=== PATIENT | male | born 1955 | race Caucasian/White ===

== ENCOUNTER → 2018-10-09 12:59 | Outpatient (CLI) | payer OTHER, SELFPAY ==
[2018-10-09 14:09] LABS: Alanine Aminotransferase 43 IU/L (21-72); Albumin 4.3 g/dL (3.5-5.0); Albumin Globulin Ratio 1.6 (1.0-2.8); Alkaline Phosphatase 44 U/L (38-126); Aspartate Aminotransferase 33 IU/L (17-59); BUN Creatinine Ratio 16.7 (6-22); Blood Urea Nitrogen 20 mg/dL (9-20); Calcium 9.2 mg/dL (8.4-10.2); Carbon Dioxide 29 mmol/L (22-32); Chloride 104 mmol/L (98-107); Cholesterol 153 mg/dL (140-199); Estimated Glomerular Filt Rate > 60.0 mL/min (>60); Globulin 2.7 g/dL (1.7-4.1); Glucose 71 mg/dL (80-110); HDL Cholesterol 39 mg/dL (40-60); HEMOLYSIS < 15 (0-50); LDL Cholesterol Calculated 83 mg/dL (<100); Sodium 139 mmol/L (137-145); Triglycerides 156 mg/dL (35-150)
[2018-10-09 14:16] LABS: Add Manual Diff / Slide Review NO; Basophils Absolute Auto 100 /uL (0-100); Basophils Percent Auto 1.3 % (0-2); Eosinophils Absolute Auto 300 /uL (0-450); Hematocrit 50.7 % (41-53); Hemoglobin 17.3 g/dL (13.5-17.5); Lymphocytes Absolute Auto 1800 /uL (1100-4500); Lymphocytes Percent Auto 30.8 % (25-40); Mean Corpuscular HGB Conc 34.2 % (30-36); Mean Corpuscular Hemoglobin 31.8 PG (26-34); Mean Corpuscular Volume 93.1 fL (80-100); Monocytes Absolute Auto 500 /uL (0-900); Monocytes Percent Auto 8.3 % (3-14); Neutrophils Absolute Auto 3300 /uL (1500-7000); Neutrophils Percent Auto 54.6 % (50-75); Platelet Count 188 X10^3/uL (150-400); Red Blood Cell Count 5.45 X10^6/uL (4.5-5.9)
== END ==
PROVIDERS: Visit Provider Hospitalist
DX: I42.9 Cardiomyopathy, unspecified (principal)
CPT/HCPCS: 36415; 80053; 80061; 85025

== ENCOUNTER → 2019-01-13 09:31 | Outpatient (CLI) | payer OTHER, SELFPAY ==
[2019-01-13 10:31] LABS: Add Manual Diff / Slide Review NO; Basophils Absolute Auto 0 /uL (0-100); Basophils Percent Auto 1.1 % (0-2); Eosinophils Absolute Auto 200 /uL (0-450); Hematocrit 44.6 % (41-53); Hemoglobin 15.4 g/dL (13.5-17.5); Lymphocytes Absolute Auto 1500 /uL (1100-4500); Lymphocytes Percent Auto 32.1 % (25-40); Mean Corpuscular HGB Conc 34.6 % (30-36); Mean Corpuscular Volume 92.6 fL (80-100); Monocytes Absolute Auto 400 /uL (0-900); Monocytes Percent Auto 8.8 % (3-14); Neutrophils Absolute Auto 2400 /uL (1500-7000); Platelet Count 162 X10^3/uL (150-400); Red Blood Cell Count 4.82 X10^6/uL (4.5-5.9); Red Cell Distribution Width 14.8 % (11.6-14.8); White Blood Cell Count 4.5 X10^3/uL (4.5-11.0)
[2019-01-13 10:54] LABS: Alanine Aminotransferase 44 IU/L (21-72); Albumin 3.9 g/dL (3.5-5.0); Albumin Globulin Ratio 1.4 (1.0-2.8); Alkaline Phosphatase 43 U/L (38-126); Aspartate Aminotransferase 31 IU/L (17-59); Bilirubin Total 0.6 mg/dL (0.2-1.3); Blood Urea Nitrogen 21 mg/dL (9-20); Calcium 9.4 mg/dL (8.4-10.2); Carbon Dioxide 29 mmol/L (22-32); Chloride 104 mmol/L (98-107); Cholesterol 233 mg/dL (140-199); Estimated Glomerular Filt Rate > 60.0 mL/min (>60); Globulin 2.7 g/dL (1.7-4.1); Glucose 106 mg/dL (80-110); HDL Cholesterol 47 mg/dL (40-60); HEMOLYSIS < 15 (0-50); LDL Cholesterol Calculated 154 mg/dL (<100); Magnesium 1.7 mg/dL (1.6-2.3); Potassium 4.6 mmol/L (3.4-5.1); Sodium 140 mmol/L (137-145); Total Protein 6.6 g/dL (6.3-8.2); Triglycerides 158 mg/dL (35-150)
[2019-01-13 11:23] LABS: Thyroid Stimulating Hormone 1.62 uIU/mL (0.47-4.68)
== END ==
PROVIDERS: PCP Hospitalist; Visit Provider Internal Medicine Cardiovascular Disease
DX: I48.3 Typical atrial flutter (principal); E78.5 Hyperlipidemia, unspecified
CPT/HCPCS: 36415; 80053; 80061; 83735; 84443; 85025

== ENCOUNTER → 2019-01-14 13:31 | Outpatient (CLI) | payer OTHER, SELFPAY ==
--- NOTE | 2019-01-14 | DI.ECHO.S_ITS ---
[facility]---------+ [facility] +---------+ : : [address] : : : : [id number] : : : : Phone: [phone]+ Echocardiogram Report + + :Name: CHANO STRANGE Study Date: 01/14/2019 Height: 68 in : :[facility] Exam Location: [facility] Weight: 196 lb : : Gender: Male BSA: 2.0 m2 : :: 1955 Age: 63 yrs BP: 120/78 mmHg: :Reason For Study: AFLUTTER : : Performed By: Cisco Yu : :Referring: BETTY ZHOU : + + Interpretation Summary The left ventricle is normal in size. The ejection fraction is estimated to be 55-60%. The right ventricle is normal in size and function. No significant valvular pathology seen. The ascending aorta is mildly enlarged. The IVC is of normal diameter and collapses greater than 50% with a sniff. This suggests a low right atrial pressure of 3 mm Hg. Procedure: A two-dimensional transthoracic echocardiogram with color flow and Doppler was performed. The study quality was technically good. There is no prior echocardiogram noted for this patient. Rhythm appears to be atrial flutter with controlled ventricular rate. Left Ventricle: The left ventricle is normal in size. There is normal left ventricular wall thickness. There is no thrombus. The ejection fraction is estimated to be 55-60%. Septal motion is consistent with conduction abnormality. E/E' med: 7.5. Right Ventricle: The right ventricle is normal in size and function. Atria: Both atria are normal in size. The interatrial septum is intact with no evidence for an atrial septal defect. Mitral Valve: The mitral valve is normal. There is systolic anterior motion of the chordal apparatus. Redundant elongated chordae are noted. There is trace mitral regurgitation. Aortic Valve: The aortic valve is trileaflet. The aortic valve opens well. There is no aortic valve stenosis. No aortic regurgitation is present. Tricuspid Valve: The tricuspid valve is normal in structure and function. There is trace tricuspid regurgitation. The right ventricular systolic pressure is estimated to be at least 18 mmHg based on an estimated right atrial pressure of 3 mm Hg. Pulmonic Valve: The pulmonic valve is normal in structure and function. There is trace pulmonic regurgitation. Great Vessels: The aortic root is normal size. The ascending aorta is mildly enlarged. The pulmonary artery is normal size. The IVC is of normal diameter and collapses greater than 50% with a sniff. This suggests a low right atrial pressure of 3 mm Hg. Pericardium/ Pleura There is no pericardial effusion. There is no pleural effusion. MMode/2D Measurements & Calculations LVIDd: 4.3 cm LVOT diam: 2.2 cm LVIDs: 2.9 cm Ao root diam: 3.6 cm FS: 32.1 % Aortic Jxn: 2.9 cm EPSS: 0.45 cm asc Aorta Diam: 3.7 cm IVSd: 0.86 cm Ao Arch Diam (Prox Trans): 3.2 cm LVPWd: 0.89 cm LV neville. diameter/BSA (cm/m^2): 2.1 LV sys. diameter/BSA (cm/m^2): 1.4 LA dimension: 4.2 cm IVC diam: 1.7 cm LA A2 area: 23.7 cm2 Doppler Measurements & Calculations Ao V2 max: 128.7 cm/sec LVOT Max Paras: 99.4 cm/sec Ao V2 mean: 89.3 cm/sec LV V1 max P.0 mmHg Ao max P.6 mmHg LV V1 VTI: 21.9 cm Ao mean P.5 mmHg JAYMIE(I,D): 3.4 cm2 Ao V2 VTI: 23.8 cm JAYMIE(V,D): 2.8 cm2 sev ratio: 0.92 JAYMIE indexed to BSA (cm^2/m^2): 1.7 MV E max paras: 78.3 cm/sec TR max paras: 190.7 cm/sec MV A max paras: 48.0 cm/sec TR max P.5 mmHg MV E/A: 1.6 PA V2 max: 66.3 cm/sec Med Peak E' Paras: 10.5 cm/sec PA V2 mean: 45.2 cm/sec E/E' med: 7.5 PA mean P.93 mmHg MV dec time: 0.13 sec PA pr(Accel): 6.6 mmHg PA Accel Time: 0.16 sec SV(LVOT): 79.8 ml Reading Physician:04:46 PM
== END ==
LOC: ECHO 13:32
PROVIDERS: PCP Hospitalist; Visit Provider Internal Medicine Cardiovascular Disease
DX: I48.3 Typical atrial flutter (principal); I77.89 Other specified disorders of arteries and arterioles
CPT/HCPCS: 93306

== ENCOUNTER → 2019-09-01 11:07 | Outpatient (CLI) | payer OTHER, SELFPAY ==
[2019-09-01 11:43] LABS: Add Manual Diff / Slide Review NO; Basophils Absolute Auto 0 /uL (0-100); Basophils Percent Auto 0.8 % (0-2); Eosinophils Absolute Auto 200 /uL (0-450); Eosinophils Percent Auto 3.4 % (2-4); Hematocrit 44.9 % (41-53); Hemoglobin 15.3 g/dL (13.5-17.5); Lymphocytes Absolute Auto 1600 /uL (1100-4500); Lymphocytes Percent Auto 30.8 % (25-40); Mean Corpuscular HGB Conc 34.2 % (30-36); Mean Corpuscular Volume 93.6 fL (80-100); Monocytes Absolute Auto 500 /uL (0-900); Monocytes Percent Auto 9.2 % (3-14); Neutrophils Absolute Auto 2900 /uL (1500-7000); Neutrophils Percent Auto 55.8 % (50-75); Platelet Count 171 X10^3/uL (150-400); Red Blood Cell Count 4.79 X10^6/uL (4.5-5.9); Red Cell Distribution Width 13.4 % (11.6-14.8); White Blood Cell Count 5.2 X10^3/uL (4.5-11.0)
[2019-09-01 12:08] LABS: Alanine Aminotransferase 40 IU/L (<50); Albumin 4.1 g/dL (3.5-5.0); Albumin Globulin Ratio 1.5 (1.0-2.8); Alkaline Phosphatase 45 U/L (38-126); Aspartate Aminotransferase 35 IU/L (17-59); BUN Creatinine Ratio 18.1 (6-22); Bilirubin Total 0.4 mg/dL (0.2-1.3); Blood Urea Nitrogen 17 mg/dL (9-20); Calcium 9.6 mg/dL (8.4-10.2); Carbon Dioxide 28 mmol/L (22-32); Chloride 106 mmol/L (98-107); Cholesterol 136 mg/dL (140-199); Estimated Glomerular Filt Rate > 60.0 mL/min (>60); Globulin 2.7 g/dL (1.7-4.1); Glucose 97 mg/dL (80-110); HDL Cholesterol 40 mg/dL (40-60); HEMOLYSIS 18 (0-50); LDL Cholesterol Calculated 64 mg/dL (<100); Potassium 4.3 mmol/L (3.4-5.1); Sodium 140 mmol/L (137-145); Total Protein 6.8 g/dL (6.3-8.2); Triglycerides 161 mg/dL (35-150)
[2019-09-01 12:38] LABS: Prostate Specific Antigen Scrn 0.813 ng/mL (0.1-4.0)
== END ==
PROVIDERS: PCP Family Medicine; Referring Provider Family Medicine; Visit Provider Family Medicine
DX: I42.9 Cardiomyopathy, unspecified (principal); Z76.89 Persons encountering health services in other specified circumstances
CPT/HCPCS: 36415; 80053; 80061; 83036; 85025; G0103

== ENCOUNTER → 2020-05-01 16:15 | Outpatient (CLI) | payer OTHER, SELFPAY ==
--- NOTE | 2020-05-01 17:05 | DI.RAD.S_ITS ---
PROCEDURE: XR CHEST 2V INDICATIONS: cough TECHNIQUE: 2 views of the chest were acquired. COMPARISON: [facility], CR, XR CHEST 1 VIEW, 04/16/2018, 10:34. FINDINGS: Surgical changes and devices: None. Lungs and pleura: Lungs are clear. No pleural effusions or pneumothorax. Left pericardial fat pad Mediastinum: Mediastinal contours are normal. Heart size is normal. Bones and chest wall: No suspicious bony abnormalities. Soft tissues appear unremarkable. IMPRESSION: No acute disease. Dictated by: Linden Gibson M.D. on 05/02/2020 at 9:51 Approved by: Linden Gibson M.D. on 05/02/2020 at 9:59
[2020-05-01 17:07] LABS: COVID19 -Nasal RAPID Negative (Negative)
== END ==
LOC: LAB 16:16 → RAD 17:05
PROVIDERS: PCP Family Medicine; Referring Provider Family Medicine; Visit Provider Family Medicine
DX: R05 Cough (principal); Z20.828 Contact with and (suspected) exposure to other viral communicable diseases
CPT/HCPCS: 71046; 87502; 87635

== ENCOUNTER → 2020-06-06 08:03 | Outpatient (CLI) | payer OTHER, SELFPAY ==
[2020-06-06 08:32] LABS: Add Manual Diff / Slide Review NO; Basophils Absolute Auto 100 /uL (0-100); Basophils Percent Auto 0.9 % (0-2); Eosinophils Absolute Auto 200 /uL (0-450); Eosinophils Percent Auto 3.1 % (2-4); Hematocrit 45.3 % (41-53); Hemoglobin 14.9 g/dL (13.5-17.5); Lymphocytes Absolute Auto 1500 /uL (1100-4500); Lymphocytes Percent Auto 26.1 % (25-40); Mean Corpuscular HGB Conc 32.9 % (30-36); Mean Corpuscular Hemoglobin 30.5 PG (26-34); Mean Corpuscular Volume 92.7 fL (80-100); Monocytes Absolute Auto 500 /uL (0-900); Monocytes Percent Auto 7.9 % (3-14); Neutrophils Absolute Auto 3700 /uL (1500-7000); Platelet Count 177 X10^3/uL (150-400); Red Blood Cell Count 4.88 X10^6/uL (4.5-5.9); Red Cell Distribution Width 13.3 % (11.6-14.8); White Blood Cell Count 5.9 X10^3/uL (4.5-11.0)
[2020-06-06 08:39] LABS: Alanine Aminotransferase 31 IU/L (<50); Albumin 3.9 g/dL (3.5-5.0); Albumin Globulin Ratio 1.5 (1.0-2.8); Alkaline Phosphatase 46 U/L (38-126); Aspartate Aminotransferase 26 IU/L (17-59); BUN Creatinine Ratio 17.2 (6-22); Bilirubin Total 0.4 mg/dL (0.2-1.3); Blood Urea Nitrogen 17 mg/dL (9-20); Carbon Dioxide 29 mmol/L (22-32); Chloride 109 mmol/L (98-107); Cholesterol 136 mg/dL (140-199); Estimated Glomerular Filt Rate > 60.0 mL/min (>60); Globulin 2.6 g/dL (1.7-4.1); Glucose 111 mg/dL (80-110); HDL Cholesterol 37 mg/dL (40-60); HEMOLYSIS < 15 (0-50); LDL Cholesterol Calculated 83 mg/dL (<100); Potassium 4.4 mmol/L (3.4-5.1); Sodium 138 mmol/L (137-145); Total Protein 6.5 g/dL (6.3-8.2); Triglycerides 80 mg/dL (35-150)
[2020-06-06 08:40] LABS: Hemoglobin A1C% w Est Avg Glu 5.9 % (4.0-6.0)
[2020-06-09 16:18] LABS: Testosterone Total 223.2 ng/dL (264.0-916.0)
== END ==
PROVIDERS: PCP Family Medicine; Referring Provider Family Medicine; Visit Provider Family Medicine
DX: E78.00 Pure hypercholesterolemia, unspecified (principal); I48.91 Unspecified atrial fibrillation; R79.89 Other specified abnormal findings of blood chemistry
CPT/HCPCS: 36415; 80053; 80061; 83036; 84402; 84403; 85025

== ENCOUNTER → 2020-12-23 10:16 | Outpatient (CLI) | payer OTHER, SELFPAY ==
[2020-12-23 11:05] LABS: COVID19 -Nasal RAPID Negative (Negative)
== END ==
PROVIDERS: PCP Family Medicine; Visit Provider Physician Assistant
DX: Z20.822 Contact with and (suspected) exposure to COVID-19 (principal); R05 Cough
CPT/HCPCS: 87635

== ENCOUNTER → 2020-12-26 09:09 | Outpatient (CLI) | payer OTHER, SELFPAY ==
--- NOTE | 2020-12-26 09:15 | DI.RAD.S_ITS ---
PROCEDURE: XR KNEE LT 3V INDICATIONS: Progressive left knee pain TECHNIQUE: 3 views of the knee were acquired. COMPARISON: None. FINDINGS: Bones: No fractures or dislocations. No suspicious bony lesions. There is tricompartmental [id number] degenerative knee joint osteoarthritis most prominent at the lateral compartment seen on the frontal view. Soft tissues: No joint effusion. No suspicious soft tissue calcifications. IMPRESSION: Tricompartmental degenerative osteoarthritis most prominent at the lateral compartment. Dictated by: Isrrael Terrazas M.D. on 12/26/2020 at 9:45 Approved by: Isrrael Terrazas M.D. on 12/26/2020 at 9:46
[2020-12-26 10:00] LABS: Hemoglobin A1C% w Est Avg Glu 5.8 % (4.0-6.0)
[2020-12-26 10:14] LABS: Alanine Aminotransferase 34 IU/L (<50); Albumin 3.9 g/dL (3.5-5.0); Albumin Globulin Ratio 1.4 (1.0-2.8); Alkaline Phosphatase 49 U/L (38-126); Aspartate Aminotransferase 35 IU/L (17-59); BUN Creatinine Ratio 17.8 (6-22); Bilirubin Total 0.5 mg/dL (0.2-1.3); Blood Urea Nitrogen 18 mg/dL (9-20); Calcium 8.8 mg/dL (8.4-10.2); Carbon Dioxide 25 mmol/L (22-32); Chloride 111 mmol/L (98-107); Estimated Glomerular Filt Rate > 60.0 mL/min (>60); Globulin 2.8 g/dL (1.7-4.1); Glucose 108 mg/dL (80-110); HEMOLYSIS < 15 (0-50); Potassium 4.5 mmol/L (3.4-5.1); Sodium 142 mmol/L (137-145); Total Protein 6.7 g/dL (6.3-8.2)
== END ==
PROVIDERS: PCP Family Medicine; Referring Provider Family Medicine; Visit Provider Family Medicine
DX: M17.12 Unilateral primary osteoarthritis, left knee (principal); R73.9 Hyperglycemia, unspecified
CPT/HCPCS: 36415; 73562; 80053; 83036

== ENCOUNTER 2021-01-29 10:13 | Emergency (ER) | payer OTHER, SELFPAY ==
[2021-01-29] VITALS (8 sets, daily range): BP systolic 117–136; BP diastolic 71; PULSE 59–61; RESP 14; TEMP 36.3; O2SAT 95–99; BMI 33.3
--- NOTE | 2021-01-29 10:16 | DI.CT.S_ITS ---
PROCEDURE: CT ABDOMEN PELVIS W CON INDICATIONS: Left-sided abdominal pain TECHNIQUE: After the administration of intravenous contrast, axial sections acquired from the lung bases to the pubic symphysis. Coronal and sagittal reformats were performed. For radiation dose reduction, the following was used: automated exposure control, adjustment of mA and/or kV according to patient size. COMPARISON: None. FINDINGS: Image quality: Excellent. Lung bases: Left basilar scars and atelectasis. Heart: No significant findings. ABDOMEN: Liver: Normal in size. Mild hepatic steatosis. Gallbladder: Unremarkable. Biliary ducts: Unremarkable. Pancreas: Unremarkable. Spleen: Unremarkable. Adrenal Glands: Unremarkable. Kidneys and Ureters: Unremarkable. Stomach and Bowel: Stomach, small bowel loops, and colon are normal in caliber. There is acute diverticulitis of the sigmoid colon. Wall-off perforation is seen with extra luminal gas in the left iliac fossa. There is a small amount of free fluid in the left pericolic gutter. Peritoneum: Small free intraperitoneal fluid in the left pericolic gutter. No free air. Ventral Wall: No hernias. Abdominal Nodes: No retroperitoneal or mesenteric adenopathy by size criteria. Vessels: Aorta and inferior vena cava are normal in size. There is an IVC filter. PELVIS: Pelvic Organs: Unremarkable. Bladder: Unremarkable. Pelvic Nodes: No enlarged lymph nodes. Miscellaneous: No hernias are seen. Bones: Unremarkable. Degenerative changes are present. IMPRESSION: 1. Acute diverticulitis of the sigmoid colon. There is localized walled-off diverticula perforation with extraluminal gas collection in the left iliac fossa. No drainable fluid collections are present. 2. After adequate treatment, a colonoscopy is suggested for follow-up as perforated colon cancer could have a similar appearance. 3. The result was discussed with Dr. Colon. Dictated by: Sophia Huerta M.D. on 01/29/2021 at 11:31 Approved by: Sophia Huerta M.D. on 01/29/2021 at 11:38
--- NOTE | 2021-01-29 10:22 | ED_ITS ---
HPI - General Adult General Chief complaint: Abdominal Pain Stated complaint: Gastric issues, severe pain, lower abdominal Time Seen by Provider: 01/29/21 10:15 Source: patient Mode of arrival: Ambulatory Limitations: no limitations History of Present Illness HPI narrative: Patient is a 65-year-old male who is sent over from the walk-in clinic for evaluation of left lower quadrant abdominal discomfort. He has had the discomfort for the past several days. Was a gradual onset but is been worsening since then. Has had a decreased appetite. Did have some diarrhea last evening. He did not changes abdominal pain at all. No nausea vomiting. No urinary symptoms. No testicular pain. No prior abdominal surgeries except for an umbilical hernia repair. He did have a colonoscopy within the past 10 years and was told that everything was clean and he needs to come back in 10 years from that time. He is on anticoagulation. Has had a history of DVTs and pulmonary embolisms. Denies any chest pain. No shortness of breath. No urinary symptoms. No blood in his stool. No headaches. No sore throat. No lo wer extremity swelling. Has not tried anything for symptoms prior to arrival. Related Data Previous Rx's Medication Instructions Recorded esomeprazole magnesium 40 mg 40 mg PO DAILY #30 cap 04/26/19 capsule,delayed release apixaban 5 mg tablet (Eliquis) 5 mg PO BID #180 tab 11/14/20 losartan 25 mg tablet 25 mg PO DAILY #90 tab 11/15/20 atorvastatin 80 mg tablet 80 mg PO DAILY #90 tab 12/26/20 carvedilol 25 mg tablet 25 mg PO BID #180 tab 12/26/20 ezetimibe 10 mg tablet 10 mg PO DAILY #90 tab 12/26/20 ciprofloxacin HCl 500 mg tablet 500 mg PO BID 10 Days #20 tab 01/29/21 metronidazole 500 mg tablet 500 mg PO TID 10 Days #30 tab 01/29/21 (Flagyl) Allergies Allergy/AdvReac Type Severity Reaction Status Date / Time codeine AdvReac Mild Nausea/vomiting Verified 01/29/21 10:22 and parasthesia Review of Systems Constitutional Constitutional: Reports system reviewed and no additional complaints, except as documented Eyes Eyes: Reports system reviewed and no additional complaints, except as documented ENT Ears, Nose, Mouth, and Throat: Reports system reviewed and no additional complaints, except as documented Cardiovascular Cardiovascular: Reports as per HPI and Reports system reviewed and no additional complaints, except as documented Respiratory Respiratory: Reports as per HPI and Reports system reviewed and no additional complaints, except as documented Gastrointestinal Gastrointestinal: Reports as per HPI and Reports system reviewed and no additional complaints, except as documented Genitourinary Genitourinary: Reports system reviewed and no additional complaints, except as documented and Reports as per HPI Musculoskeletal Musculoskeletal: Reports system reviewed and no additional complaints, except as documented Integumentary/Breasts Skin/Breast: Reports system reviewed and no additional complaints, except as documented and Reports as per HPI Neurologic Neurologic: Reports system reviewed and no additional complaints, except as documented Psychiatric Psychiatric: Reports system reviewed and no additional complaints, except as documented Endocrine Endocrine: Reports system reviewed and no additional complaints, except as documented Hematologic/Lymphatic Hematologic/Lymphatic: Reports system reviewed and no additional complaints, except as documented On Anticoagulants: Yes Allergic/Immunologic Allergic/Immunologic: Reports system reviewed and no additional complaints, except as documented Patient History Medical History ADHD (~1955) Atrial fibrillation (~2015) Atrial flutter Cardiomyopathy Dyspnea Fractures (~1969) H/O deep venous thrombosis (~1998) Hepatitis C (~1976) High cholesterol Hyperglycemia Hypertension Kidney failure (~2015) Low testosterone (~2004) Lumbar degenerative disc disease Osteoarthritis of left knee Pulmonary embolism (~1998) Tobacco abuse Surgical History (Updated 10/17/18 @ 21:41 by Suyapa Nowak) Anesthesia Umbilical hernia (~2017) Family History (Updated 10/09/18 @ 12:21 by Gala Garcia MD) Father No problems noted. Mother Glioblastoma multiforme Social History Smoking Status: Former smoker Smoking Status: Former smoker alcohol intake frequency: 0-2 drinks per day Substance Use Type: does not use Exam Initial Vital Signs Initial Vital Signs: Vital Signs Temperature 97.4 F L 01/29/21 10:19 Pulse Rate 59 L 01/29/21 10:19 Respiratory Rate 14 01/29/21 10:19 Blood Pressure 136/71 01/29/21 10:19 Pulse Oximetry 99 01/29/21 10:19 Const General: cooperative, healthy appearing, comfortable, well developed and well groomed [facility] Head: normal to inspection and normocephalic Eyes General: appearance normal, both eyes and all related structures Neck Neck: normal visual inspection Chest Chest: normal inspection of the chest Resp Effort & Inspection: normal respiratory effort, not labored and not tachypneic Auscultation: clear to auscultation bilaterally Cardio Rate: regular rate Rhythm: regular rhythm GI Inspection: normal to inspection Palpation: soft and tender (Left lower quadrant without rebound) General: bimanual renal exam normal bilaterally Back/Spine/Pelvis Back: normal to inspection and No CVA tenderness Skin General: no rashes or lesions noted Neuro General: patient alert, patient awake, patient oriented x3 and moves all extremities Speech: speech normal Gait: normal gait Extrem General: normal to inspection and capillary refill normal Psych Appearance: grossly normal and well kempt Course Orders Ordered: ED Orders 01/29/21 10:16 CT abdomen pelvis w con Stat EKG-12 Lead Stat 01/29/21 10:20 Complete Blood Count AUTO DIFF Stat Comprehensive Metabolic Panel Stat Lipase Stat 01/29/21 10:27 Urine Microscopic Stat Discontinued Medications Ciprofloxacin (Ciprofloxacin 250 Mg Tablet) 500 mg PO NOW ONE Stop: 01/29/21 12:31 Last Admin: 01/29/21 12:41 Dose: 500 mg Documented by: JEREMI Sodium Chloride (Normal Saline 0.9%) 1,000 mls @ 1,000 mls/hr IV BOLUS ONE Stop: 01/29/21 11:14 Last Infusion: 01/29/21 12:25 Dose: 0 mls/hr Documented by: Admin: 01/29/21 10:38 Dose: 1,000 mls/hr Documented by: YVAN Metronidazole (Metronidazole 500 Mg Tablet) 500 mg PO NOW ONE Stop: 01/29/21 12:31 Last Admin: 01/29/21 12:41 Dose: 500 mg Documented by: JEREMI Vital Signs Vital signs: Vital Signs - 8 hr 01/29/21 10:19 01/29/21 10:39 Temperature 97.4 F L Pulse Rate 59 L 60 Respiratory Rate 14 Blood Pressure 136/71 Pulse Oximetry 99 99 Medical Decision Making Lab Data Lab results reviewed: Yes I reviewed the patient's lab results. Result diagrams: 01/29/21 10:20 01/29/21 10:20 Labs: Lab Results 01/29/21 01/29/21 01/29/21 Range/Units 10:20 10:20 10:27 WBC 8.4 (4.5-11.0) X10^3/uL RBC 4.97 (4.5-5.9) X10^6/uL Hgb 15.1 (13.5-17.5) g/dL Hct 45.9 (41-53) % MCV 92.4 (80-100) fL MCH 30.4 (26-34) PG MCHC 32.9 (30-36) % RDW 13.6 (11.6-14.8) % Plt Count 208 (150-400) X10^3/uL Neut % (Auto) 78.6 H (50-75) % Lymph % (Auto) 11.1 L (25-40) % [place] % (Auto) 8.5 (3-14) % Eos % (Auto) 1.3 L (2-4) % Baso % (Auto) 0.5 (0-2) % Neut # (Auto) 6600 (9189-1177) /uL Lymph # (Auto) 900 L (1444-1245) /uL [place] # (Auto) 700 (0-900) /uL Eos # (Auto) 100 (0-450) /uL Baso # (Auto) 0 (0-100) /uL Sodium 140 (137-145) mmol/L Potassium 3.8 (3.4-5.1) mmol/L Chloride 105 (98-107) mmol/L Carbon Dioxide 30 (22-32) mmol/L BUN 11 (9-20) mg/dL Creatinine 0.90 (0.66-1.25) mg/dL Estimated GFR > 60.0 (>60) mL/min BUN/Creatinine Ratio 12.2 (6-22) Glucose 117 H (80-110) mg/dL Calcium 9.6 (8.4-10.2) mg/dL Total Bilirubin 0.9 (0.2-1.3) mg/dL AST 32 (17-59) IU/L ALT 35 (<50) IU/L Alkaline Phosphatase 70 (38-126) U/L Total Protein 8.0 (6.3-8.2) g/dL Albumin 4.4 (3.5-5.0) g/dL Globulin 3.6 (1.7-4.1) g/dL Albumin/Globulin Ratio 1.2 (1.0-2.8) Lipase 43 (23-300) U/L Urine RBC 0-1/hpf (0-5/HPF) Urine WBC 1-5/hpf (0-5/HPF) Ur Squamous Epith Cells 5-10 /hpf H (0-5/HPF) Urine Bacteria None seen (None) Urine Mucus 2+ H (Negative) Ur Culture Indicated? Cult not indicated Urine Dip Bedside Urine Glucose Negative Bedside Urine Bilirubin - Negative Bedside Urine Ketone - Negative Urine Specific [place] 1.030 Bedside Urine Occult Blood - Negative Bedside Urine pH 6.0 Bedside Urine Protein +/- 15 Bedside Urine Urobilinogen - Negative Bedside Urine Nitrite - Negative Bedside Urine Leukocytes - Negative Esterase Point of care testing: Urine Dip Bedside Urine Glucose Negative Bedside Urine Bilirubin - Negative Bedside Urine Ketone - Negative Urine Specific [place] 1.030 Bedside Urine Occult Blood - Negative Bedside Urine pH 6.0 Bedside Urine Protein +/- 15 Bedside Urine Urobilinogen - Negative Bedside Urine Nitrite - Negative Bedside Urine Leukocytes - Negative Esterase Imaging Data CT scan - abdomen/pelvis: Radiologist's Impression: [place] [address] CT Scan Report Signed Patient: Dale Ortega MR#: [id number] : 1955 Acct:[id number] Age/Sex: 65 / M Date of Service: 01/29/21 Loc: ED Accession Number: [id number] ?? Procedure: CT abdomen pelvis w con Ordering Provider: Flakito Colon D.O. PROCEDURE:? CT ABDOMEN PELVIS W CON ? INDICATIONS:? Left-sided abdominal pain ? TECHNIQUE:? After the administration of intravenous contrast, axial sections acquired from the lung bases to the pubic symphysis.? Coronal and sagittal reformats were performed.? For radiation dose reduction, the following was used:? automated exposure control, adjustment of mA and/or kV according to patient size.? ? COMPARISON:? None. ? FINDINGS:? Image quality:? Excellent.? ? Lung bases:? Left basilar scars and atelectasis. Heart:? No significant findings. ? ABDOMEN: Liver:? Normal in size.? Mild hepatic steatosis. Gallbladder:? Unremarkable.? ? Biliary ducts:? Unremarkable.? ? Pancreas:? Unremarkable.? ? Spleen:? Unremarkable.? ? Adrenal Glands:? Unremarkable.? ? Kidneys and Ureters:? Unremarkable.? ? ? Stomach and Bowel:? Stomach, small bowel loops, and colon are normal in caliber.? There is acute diverticulitis of the sigmoid colon.? Wall-off perforation is seen with extra luminal gas in the left iliac fossa.? There is a small amount of free fluid in the left pericolic gutter.? Peritoneum:? Small free intraperitoneal fluid in the left pericolic gutter.? No free air. ? ? Ventral Wall: ? No hernias.? Abdominal Nodes:? No retroperitoneal or mesenteric adenopathy by size criteria.? Vessels:? Aorta and inferior vena cava are normal in size.? There is an IVC filter. ? PELVIS: Pelvic Organs:? Unremarkable.? ? Bladder:? Unremarkable.? ? Pelvic Nodes: No enlarged lymph nodes.? Miscellaneous: No hernias are seen. ? ? ? Bones:? Unremarkable. ? Degenerative changes are present. ? ? IMPRESSION:? ? 1. Acute diverticulitis of the sigmoid colon.? There is localized walled-off diverticula perforation with extraluminal gas collection in the left iliac fossa.? No drainable fluid collections are present. 2. After adequate treatment, a colonoscopy is suggested for follow-up as perforated colon cancer could have a similar appearance. 3. The result was discussed with Dr. Colon. ? ? ? Dictated by: Sophia Huerta M.D. on 01/29/2021 at 11:31 ? ? Approved by: Sophia Huerta M.D. on 01/29/2021 at 11:38?? ECG Data Attestation: I personally reviewed and interpreted this ECG as follows: Interpretation: Sinus rhythm Ventricular rate is 65 Occasional PAC Normal QRS Normal QTC No ST T wave changes MDM Narrative Medical decision making narrative: Patient is nontoxic appearing. He does have left-sided lower abdominal pain. CT scan does show diverticulitis with a perforation but no signs of abscess. His labs are reassuring. I did discuss the case with Dr. Castillo who is on-call for General surgery. She reviewed the CT scan. Given his nontoxic appearance the plan will be is to send him home with antibiotics and strict return precautions. He was given 1st dose of antibiotics here in the emergency department. He expressed understanding and a greement with plan. Discharge Plan Departure Patient Disposition: Home Clinical Impression: Diverticulitis Instructions: DI for Diverticulitis Activity Restrictions/Additional Instructions: It is important that you take the antibiotics as directed for the entire course of the treatment. Contact your primary doctor for a follow-up. Return to the emergency department for any new symptoms to include worsening abdominal pain, fevers, inability to take the medications or any other new or worsening symptoms. Prescriptions: New ciprofloxacin HCl 500 mg tablet 500 mg PO BID 10 Days Qty: 20 RF: 0 metronidazole [Flagyl] 500 mg tablet 500 mg PO TID 10 Days Qty: 30 RF: 0 No Action esomeprazole magnesium 40 mg capsule,delayed release(DR/EC) 40 mg PO DAILY Qty: 30 RF: 1 Eliquis 5 mg tablet 5 mg PO BID Qty: 180 RF: 2 losartan 25 mg tablet 25 mg PO DAILY Qty: 90 RF: 1 atorvastatin 80 mg tablet 80 mg PO DAILY Qty: 90 RF: 3 carvedilol 25 mg tablet 25 mg PO BID Qty: 180 RF: 3 ezetimibe 10 mg tablet 10 mg PO DAILY Qty: 90 RF: 3 Referrals: Cosme Martinez DO [Primary Care Provider] -
[2021-01-29 10:36] LABS: Add Manual Diff / Slide Review NO; Basophils Absolute Auto 0 /uL (0-100); Basophils Percent Auto 0.5 % (0-2); Eosinophils Absolute Auto 100 /uL (0-450); Eosinophils Percent Auto 1.3 % (2-4); Hematocrit 45.9 % (41-53); Hemoglobin 15.1 g/dL (13.5-17.5); Lymphocytes Absolute Auto 900 /uL (1100-4500); Lymphocytes Percent Auto 11.1 % (25-40); Mean Corpuscular HGB Conc 32.9 % (30-36); Mean Corpuscular Hemoglobin 30.4 PG (26-34); Mean Corpuscular Volume 92.4 fL (80-100); Monocytes Absolute Auto 700 /uL (0-900); Monocytes Percent Auto 8.5 % (3-14); Neutrophils Absolute Auto 6600 /uL (1500-7000); Neutrophils Percent Auto 78.6 % (50-75); Platelet Count 208 X10^3/uL (150-400); Red Blood Cell Count 4.97 X10^6/uL (4.5-5.9); Red Cell Distribution Width 13.6 % (11.6-14.8); White Blood Cell Count 8.4 X10^3/uL (4.5-11.0)
[2021-01-29] MEDS: SODIUM CHLORIDE 0.9% 1,000 ML 1000 ML IV (10:38)
[2021-01-29 10:51] LABS: Alanine Aminotransferase 35 IU/L (<50); Albumin 4.4 g/dL (3.5-5.0); Albumin Globulin Ratio 1.2 (1.0-2.8); Alkaline Phosphatase 70 U/L (38-126); Aspartate Aminotransferase 32 IU/L (17-59); BUN Creatinine Ratio 12.2 (6-22); Bilirubin Total 0.9 mg/dL (0.2-1.3); Blood Urea Nitrogen 11 mg/dL (9-20); Calcium 9.6 mg/dL (8.4-10.2); Carbon Dioxide 30 mmol/L (22-32); Chloride 105 mmol/L (98-107); Estimated Glomerular Filt Rate > 60.0 mL/min (>60); Globulin 3.6 g/dL (1.7-4.1); Glucose 117 mg/dL (80-110); HEMOLYSIS < 15 (0-50); Lipase 43 U/L (23-300); Potassium 3.8 mmol/L (3.4-5.1); Sodium 140 mmol/L (137-145)
[2021-01-29 11:24] LABS: Bacteria Urine None Seen; Culture Indicated Urine Cult Not Indicated; Mucus Urine 2+ (Negative); RBC Urine 0-1/HPF (0-5/HPF); Squamous Epithelial Cell Urine 5-10 /HPF (0-5/HPF); WBC Urine 1-5/HPF (0-5/HPF)
[2021-01-29] MEDS: metroNIDAZOLE 500 MG TABLET PO (12:41)
[2021-01-29] MEDS: CIPROFLOXACIN 250 MG TABLET 500 MG PO (12:41)
== END 2021-01-29 13:31 | disposition home or self-care (01) ==
PROVIDERS: Emergency Provider Emergency Medicine; PCP Family Medicine
DX: K57.92 Diverticulitis of intestine, part unspecified, without perforation or abscess without bleeding (principal); R07.9 Chest pain, unspecified
CPT/HCPCS: 36415; 74177; 80053; 81003; 81015; 83690; 85025; 87635; 93005; 93010; 96360; 96361; 99284

== ENCOUNTER → 2021-08-27 09:05 | Outpatient (CLI) | payer OTHER, SELFPAY ==
[2021-08-27 09:29] LABS: COVID19 -Nasal RAPID Negative (Negative)
== END ==
PROVIDERS: PCP Family Medicine; Visit Provider Student in an Organized Health Care Education/Training Program
DX: Z20.822 Contact with and (suspected) exposure to COVID-19 (principal)
CPT/HCPCS: 87635

== ENCOUNTER 2022-09-28 16:24 | Emergency (ER) | payer OTHER, MEDICARE, SELFPAY ==
[2022-09-28 16:31] VITALS: BP 156/94; PULSE 54; RESP 18; TEMP 36.6; O2SAT 98; BMI 30.4
--- NOTE | 2022-09-28 16:38 | DI.RAD.S_ITS ---
PROCEDURE: XR HAND LT MIN 3V INDICATIONS: Slammed hand in car trunk TECHNIQUE: 3 views of the hand(s) acquired. COMPARISON: None. FINDINGS: Bones: No fractures or dislocations. Carpal bones are normally aligned. No suspicious bony lesions. Soft tissues: No suspicious soft tissue calcifications. IMPRESSION: No acute fracture. No osseous lesion. If symptoms and/or clinical suspicion for pathology persist, further assessment with repeat, or advanced imaging (e.g., CT, MRI, or bone scan) may be helpful for further assessment. Dictated by: Mendoza Thacker M.D. on 09/28/2022 at 16:04 Approved by: Mendoza Thacker M.D. on 09/28/2022 at 16:05
--- NOTE | 2022-09-28 17:11 | ED_ITS ---
HPI - Extremity Injury (Upper) <TIFFANIE Charles - Last Filed: 09/28/22 17:57> General Chief Complaint: Extremity Injury, Upper Stated Complaint: LT HAND INJURY Time Seen by Provider: 09/28/22 17:02 Source: patient Mode of arrival: Ambulatory History of Present Illness HPI narrative: This is a 67-year-old male who presents to the emergency department, he is left- hand dominant, anticoagulated for atrial fibrillation on apixaban daily who complains a left hand injury that occurred just prior to arrival. He states that he accidentally shut his left hand across the fingers in the trunk of his car. He states that the car latched, it took him awhile to get the trunk open and he was concerned about fracture of his left hand. He states that he is left-hand dominant, plays guitar, has limited mobility due to pain and swelling over the PIP joints. He denies numbness, tingling, sensation deficit but states that his limitation is limited due to his pain. Related Data Previous Rx's Medication Instructions Recorded benzonatate 200 mg capsule 200 mg PO TID PRN cough #30 caps 08/27/21 omeprazole 20 mg tablet,delayed 20 mg PO DAILY #30 tabs 05/01/22 release rosuvastatin 10 mg tablet 10 mg PO DAILY #90 tabs 06/20/22 apixaban 5 mg tablet (Eliquis) See Rx Instructions .Route 07/12/22 .COMPLEX #180 tabs losartan 25 mg tablet See Rx Instructions .Route 07/12/22 .COMPLEX #90 tabs carvedilol 25 mg tablet See Rx Instructions .Route 07/17/22 .COMPLEX #180 tabs Allergies Allergy/AdvReac Type Severity Reaction Status Date / Time codeine AdvReac Mild Nausea/vomiting Verified 08/27/21 09:03 and parasthesia fentanyl AdvReac Mild Vomiting Verified 09/28/22 16:40 morphine AdvReac Mild Vomiting Verified 09/28/22 16:40 <Humberto Crenshaw DO - Last Filed: 09/29/22 12:32> Review of Systems Narrative: see HPI Patient History <TIFFANIE Charles - Last Filed: 09/28/22 17:57> Medical History ADHD (~195) Atrial fibrillation (~2015) Atrial flutter Cardiomyopathy Dyspnea Fractures (~1969) H/O deep venous thrombosis (~1998) Hepatitis C (~1976) High cholesterol Hyperglycemia Hypertension Kidney failure (~2015) Low testosterone (~2004) Lumbar degenerative disc disease Osteoarthritis of left knee Pulmonary embolism (~1998) Tobacco abuse Surgical History Anesthesia Umbilical hernia (~2017) Family History Father No problems noted. Mother Glioblastoma multiforme Social History Smoking Status: Former smoker Smoking Status: Former smoker alcohol intake frequency: 0-2 drinks per day Substance Use Type: does not use Exam <TIFFANIE Charles - Last Filed: 09/28/22 17:57> Narrative Exam Narrative: Reviewed vitals signs and nursing notes. MSK: moves all extremities, no weakness, normal tone, ambulatory without deficit, ecchymosis across the proximal phalanxes of his left hand, mild edema over the PIP joint of the index finger, full range of motion both flexion and extension isolated each joint and neurovascularly intact times all fingers. There is no open wound, no mobility or sensation deficit. Skin: brisk capillary refill, without rash or wound Neuro: clear speech and normal cognition, A&O x3, GCS 15, no focal motor or sensation deficits Initial Vital Signs Initial Vital Signs: Vital Signs Temperature 97.9 F 09/28/22 16:31 Pulse Rate 54 L 09/28/22 16:31 Respiratory Rate 18 09/28/22 16:31 Blood Pressure 156/94 H 09/28/22 16:31 Pulse Oximetry 98 09/28/22 16:31 Oxygen Delivery Method Room Air 09/28/22 16:31 <Humberto Crenshaw DO - Last Filed: 09/29/22 12:32> Initial Vital Signs Initial Vital Signs: Vital Signs Temperature 97.9 F 09/28/22 16:31 Pulse Rate 54 L 09/28/22 16:31 Respiratory Rate 18 09/28/22 16:31 Blood Pressure 156/94 H 09/28/22 16:31 Pulse Oximetry 98 09/28/22 16:31 Oxygen Delivery Method Room Air 09/28/22 16:31 Procedures <TIFFANIE Charles - Last Filed: 09/28/22 17:57> Orthopedic Splinting/Casting Injury #1: Side: left Upper Extremity Injury Location: hand Upper Extremity Immobilizer: thumb spica Post splinting neuro exam: intact Post splinting vascular exam: intact Placed by: Nursing Course <TIFFANIE Charles - Last Filed: 09/28/22 17:57> Orders Ordered: Discontinued Medications Oxycodone/Acetaminophen (Oxycodone/Acetaminophen 5/325 Tablet) 1 tab PO NOW ONE Stop: 09/28/22 17:13 Last Admin: 09/28/22 17:53 Dose: Not Given Documented By: TONE Vital Signs Vital signs: Vital Signs - 8 hr 09/28/22 16:31 Temperature 97.9 F Pulse Rate 54 L Respiratory Rate 18 Blood Pressure 156/94 H Pulse Oximetry 98 Oxygen Delivery Method Room Air <Humberto Crenshaw DO - Last Filed: 09/29/22 12:32> Orders Ordered: Discontinued Medications Oxycodone/Acetaminophen (Oxycodone/Acetaminophen 5/325 Tablet) 1 tab PO NOW ONE Stop: 09/28/22 17:13 Last Admin: 09/28/22 17:53 Dose: Not Given Documented By: TONE Vital Signs Vital signs: Vital Signs - 8 hr 09/28/22 16:31 Temperature 97.9 F Pulse Rate 54 L Respiratory Rate 18 Blood Pressure 156/94 H Pulse Oximetry 98 Oxygen Delivery Method Room Air MDM - Extremity Injury (Upper) <TIFFANIE Charles - Last Filed: 09/28/22 17:57> Imaging Data Extremity x-ray #1: Radiologist's Impression: PROCEDURE:? XR HAND LT MIN 3V ? INDICATIONS:? Slammed hand in car trunk ? TECHNIQUE:? 3 views of the hand(s) acquired.? ? COMPARISON:? None. ? FINDINGS:? ? Bones:? No fractures or dislocations.? Carpal bones are normally aligned.? No suspicious bony lesions.? ? Soft tissues:? No suspicious soft tissue calcifications.? ? ? IMPRESSION:? No acute fracture. No osseous lesion. If symptoms and/or clinical suspicion for pathology persist, further assessment with repeat, or advanced imaging (e.g., CT, MRI, or bone scan) may be helpful for further assessment. ? ? Dictated by: Mendoza Thacker M.D. on 09/28/2022 at 16:04 ? ? Approved by: Mendoza Thacker M.D. on 09/28/2022 at 16:05 ? MDM Narrative Medical decision making narrative: Chief Complaint: Hand injury Independent historian: Patient Multiple etiologies for patient's symptoms considered including, but not limited to: Hand fracture, ligamental injury, vascular injury, fingernail injury, sprain/strain I have independently reviewed the patient's vital signs and nursing notes as well as prior records if available. My interpretation of imaging: Hand x-ray without evidence of acute fracture Course of care: Patient had x-rays of his left hand, no fractures are present, he has foaming mole visibly and sensation, neurovascularly intact. He was splinted in a left thumb spica. CSF remains intact. He wishes to have this for comfort. He will follow up with Orthopedics as needed if he has worsening pain, encouraged him to use something topical for pain control, offered hydrocodone or other pain pill but he declined, wishes to use marijuana instead. Social considerations that may affect disposition: none Questions are addressed and there is agreement with the plan and for follow-up. I consulted with the ED attending physician Dr. Crenshaw as needed for higher level of care considerations and they were available for discussion and recommendations regarding plan of care and diagnostic testing. Patient is appropriate for outpatient management. Discharge Plan Departure Patient Disposition: Home Clinical Impression: Hand crush injury Qualifiers: Encounter type: initial encounter Laterality: left Qualified Code(s): S67.22XA - Crushing injury of left hand, initial encounter Instructions: DI for Crush Injury, DI for Hand Injury Activity Restrictions/Additional Instructions: *You have been diagnosed with a crush injury to your hand with sprain/strain of your fingers. The joints swollen and the ligaments surrounding them are inflamed. Please use something topical in addition to Tylenol, or other pain medication. Since you are on a blood thinner I can not give you anti- inflammatories, sorry about this. There are no fractures evident on your x-ray but if this gets worse, if your pain progresses, please follow-up with the orthopedic group for repeat evaluation. Sometimes x-rays need to be redone in a few days to show tiny fractures. Please ice this frequently for 20 minutes at a time up to 3 times a day. I hope you feel better soon it was a pleasure to meet you, thank you for teaching me something, have a good rest of your week. Schedule an appointment at the orthopedic group in 1 week or less for follow-up as needed. Please wear the splint for 1-3 weeks to allow for faster healing and decreased pain. *What to do: *Please continue to take your regular medications as directed. [ ] New medication prescriptions sent to your pharmacy: [ ] [ ] New medication written as a paper prescription [x] No new medications given *Please call and schedule follow up with your primary care provider in 2-3 days, at least for an update. Let them know you were seen in the Emergency Department for the above problem. We will electronically transmit a record of today's note if your PCP or specialist is in our system. *If you do not have a primary care provider please contact [phone] to establish care with one of the [facility] primary care providers. *Return to the Emergency Department for worsening symptoms, inability to keep liquids down, fever greater than 101F, chills, or other concerning symptom. Prescriptions: No Action benzonatate 200 mg capsule 200 mg PO TID PRN (Reason: cough) Qty: 30 0RF omeprazole 20 mg tablet,delayed release (DR/EC) 20 mg PO DAILY Qty: 30 2RF losartan 25 mg tablet See Rx Instructions .ROUTE .COMPLEX Qty: 90 3RF Dose Instruction: TAKE 1 TABLET DAILY Rx Instructions: TAKE 1 TABLET DAILY Eliquis 5 mg tablet See Rx Instructions .ROUTE .COMPLEX Qty: 180 3RF Dose Instruction: TAKE 1 TABLET TWICE A DAY Rx Instructions: TAKE 1 TABLET TWICE A DAY carvedilol 25 mg tablet See Rx Instructions .ROUTE .COMPLEX Qty: 180 3RF Dose Instruction: TAKE 1 TABLET TWICE A DAY (APPOINTMENT DUE WITH PRIMARY CARE PHYSICIAN PRIOR TO END OF RX/FUTURE FILLS, PLEASE CALL TO SCHEDULE APPOINTMENT) Rx Instructions: TAKE 1 TABLET TWICE A DAY (APPOINTMENT DUE WITH PRIMARY CARE PHYSICIAN PRIOR TO END OF RX/FUTURE FILLS, PLEASE CALL TO SCHEDULE APPOINTMENT) rosuvastatin 10 mg tablet 10 mg PO DAILY Qty: 90 3RF Referrals: [facility] [Provider Group] Cosme Martinez DO [Primary Care Provider] - Stand Alone Forms: Patient Portal/API <Humberto Crenshaw DO - Last Filed: 09/29/22 12:32> Cosign ED Attending Cosignature Attestation: I was immediately available in the department for consultation. This documentation has been reviewed and I agree with assessment and plan. Supervised by Humberto Crenshaw DO
--- NOTE | 2022-09-28 18:08 | PC.NURSE ---
Patient was evaluated and discharged by provider prior to nursing assessment.
== END 2022-09-28 18:07 | disposition home or self-care (01) ==
PROVIDERS: Emergency Provider Nurse Practitioner Critical Care Medicine; PCP Family Medicine
DX: S67.22XA Crushing injury of left hand, initial encounter (principal); W23.0XXA Caught, crushed, jammed, or pinched between moving objects, initial encounter; I48.91 Unspecified atrial fibrillation; Z79.01 Long term (current) use of anticoagulants
CPT/HCPCS: 73130; 99282; 99283